=== PATIENT | female | born 1995 | race Caucasian/White ===

== ENCOUNTER 2016-11-28 17:19 | Emergency (ER) | payer OTHER ==
[2016-11-28 18:26] VITALS: BP 144/79
--- NOTE | 2016-11-28 19:19 | UC ---
Hand/Wrist HPI - HPI Summary HPI Summary: CRUSHING INJURY TO RIGHT THUMB/ THUMB NAIL ABUT 2 HRS AGO + PAIN , SWELLING OF THE RIGHT THUMB, + BRUISING OF THE RIGHT THUMB NAIL - History Of Current Complaint Chief Complaint: UCUpperExtremity Stated Complaint: RIGHT THUMB INJURY Time Seen by Provider: 11/28/16 18:34 Hx Obtained From: Patient Hx Last Menstrual Period: 11/04/16 Onset/Duration: Sudden Onset, Lasting Hours - 2, Still Present Severity Initially: Moderate Severity Currently: Moderate Pain Intensity: 6 Pain Scale Used: 0-10 Numeric Character Of Pain: Throbbing Aggravating Factor(s): Movement, Flexion Alleviating: Nothing Associated Signs And Symptoms: Positive: Swelling, Numbness/Tingling - Allergies/Home Medications Allergies/Adverse Reactions: Allergies Allergy/AdvReac Type Severity Reaction Status Date / Time Sulfa Drugs Allergy Hives Verified 11/28/16 18:26 Home Medications: Home Medications Norgestimate-Ethinyl Estradiol [Tri-Sprintec 0.18/0.215/0.25 mg-35 Mcg] 1 tab PO DAILY 11/28/16 [History Confirmed 11/28/16] PMH/Surg Hx/FS Hx/Imm Hx Previously Healthy: Yes - Surgical History Surgical History: Yes Surgery Procedure, Year, and Place: wisdom teeth 07/08/14. COLONSCOPY ON , FOR RECTAL BLEEDING AND PAIN. - Family History Known Family History: Positive: None Negative: Diabetes - Social History Alcohol Use: Occasionally Substance Use Type: None Smoking Status (MU): Never Smoked Tobacco Review of Systems Constitutional: Negative Skin: Negative Eyes: Negative ENT: Negative Respiratory: Negative Cardiovascular: Negative Gastrointestinal: Negative Genitourinary: Negative Motor: Negative Neurovascular: Negative Musculoskeletal: Negative Neurological: Negative Psychological: Negative All Other Systems Reviewed And Are Negative: Yes Physical Exam Triage Information Reviewed: Yes Appearance: Well-Appearing, Well-Nourished, Pain Distress Vital Signs: Initial Vital Signs Temp 98.7 F 11/28/16 18:23 Pulse 67 11/28/16 18:23 Resp 16 11/28/16 18:23 BP 144/79 11/28/16 18:23 Pulse Ox 100 11/28/16 18:23 Vital Signs Reviewed: Yes Eyes: Positive: Conjunctiva Clear ENT: Positive: Normal ENT inspection, Hearing grossly normal, Pharynx normal Neck: Positive: Supple, Nontender, No Lymphadenopathy Respiratory: Positive: Chest non-tender, Lungs clear, Normal breath sounds Cardiovascular: Positive: RRR, No Murmur, Pulses Normal Skin: Positive: Other - RIGHT THUMB : + SUBUNGUAL HEMATOMA TENDER , MILD SWELLING UC Physical Exam Vital Signs On Initial Exam: Initial Vitals Temp Pulse Resp BP Pulse Ox 98.7 F 67 16 144/79 100 11/28/16 18:23 11/28/16 18:23 11/28/16 18:23 11/28/16 18:23 11/28/16 18:23 Procedures - Nail Trepanation Nail Trepanation Location: SUBUNGAL HEMATOMA RIGHT THUMB Method of Drainage: nail cauterized Sterile Dressing Applied: Yes Finger Splint: No Hand/Wrist Course/Dx - Differential Dx/Diagnosis Provider Diagnoses: SUBMUNGUAL HEMATOMA Discharge - Discharge Plan Condition: Stable Disposition: HOME Patient Education Materials: Subungual Hematoma (ED) Referrals: Amelia Franco PA [Primary Care Provider] - 7 Days
== END 2016-11-28 19:07 | disposition home or self-care (01) ==
LOC: UCCORT 17:19
DX: S60.111A Contusion of right thumb with damage to nail, initial encounter (principal); W23.0XXA Caught, crushed, jammed, or pinched between moving objects, initial encounter; Y92.9 Unspecified place or not applicable; Z88.2 Allergy status to sulfonamides
CPT/HCPCS: 11740; 99212; G0463